=== PATIENT | male | born 1955 | race Caucasian/White ===

== ENCOUNTER 2018-10-28 20:02 | Inpatient (IN) | payer BC ==
[~2018-10-28] VITALS: Ht 182.9 cm; Wt 106.2 kg
[~2018-10-28 20:02] MED LIST: ADVIL200 MG PO; ASPIRIN E.C. 8181 MG PO; ATOXIMETIN-B1 CAP PO; HYZAAR 12.5 MG-1 TAB PO; LIPITOR80 MG PO; LISINOPRIL20 MG PO; ROBAXIN 50500 MG/TAB PO
[2018-10-28 21:17] LABS: COLLECTION METHOD CLEAN CATCH
[2018-10-28 21:26] LABS: BASO % 0.2 % (0.0-2.0); EOS # 0.2 (0.0-0.7); EOS % 1.1 % (0-4.0); GRAN # 10.2 (1.4-6.5); HEMATOCRIT 44.7 % (42.0-52.0); HEMOGLOBIN 15.7 g/dl (13.5-18.0); LYMPH # 2.4 (1.2-3.4); LYMPH % 17.5 % (20.0-51.0); MEAN CELL VOLUME 87 fl (80.0-100.0); MEAN CORPUSCULAR HEMOGLOBIN 31 pg (27.0-31.0); MEAN CORPUSCULAR HGB CONC 35 g/dl (33.0-37.0); MEAN PLATELET VOLUME 9.9 fl (7.4-10.4); MONO # 0.9 (0.1-0.6); MONO % 6.8 % (1.7-9.3); PLATELET COUNT 250 K/mm3 (130-400); RED BLOOD COUNT 5.14 M/mm3 (4.20-5.60); REDCELL DISTRIBUTION WIDTH-CV 11.9 % (11.5-14.5)
[2018-10-28 21:35] LABS: PH 6 (5-8); SQUAMOUS EPITHELIAL None Seen /hpf; URINE APPEARANCE Clear; URINE BACTERIA None Seen /hpf; URINE BILIRUBIN Negative (NEGATIVE); URINE BLOOD Negative (NEGATIVE); URINE COLOR Straw; URINE GLUCOSE 3+ (NEGATIVE); URINE KETONE Trace (NEGATIVE); URINE LEUKOCYTE ESTERASE Negative (NEGATIVE); URINE NITRATE Negative (NEGATIVE); URINE PROTEIN(semi-quant) Negative (NEGATIVE); URINE RBC 0-2 /hpf; URINE UROBILINOGEN Negative (NEGATIVE)
[2018-10-28 21:50] LABS: ALBUMIN 4.6 gm/dL (3.5-5.0); BILIRUBIN,TOTAL 0.9 mg/dL (0.0-1.0); C-REACTIVE PROTEIN 2.9 mg/dL (0.0-0.9); CALCIUM 9.9 mg/dL (8.4-10.2); CREATININE, serum 0.86 (0.66-1.25); POTASSIUM 3.8 mmol/L (3.4-5.0); TOTAL PROTEIN 7.8 gm/dL (6.4-8.2)
[2018-10-28] MEDS ORDERED: GLUCOPHAGE1000 MG PO (23:25)
[2018-10-29] VITALS (10 sets, daily range): BP systolic 13–155; BP diastolic 66–84; PULSE 64–76; TEMP 98–99.2
[2018-10-29] MEDS ORDERED: ALEVE 220MG220 MG PO (00:22)
[2018-10-29] MEDS ORDERED: HYZAAR 50-12.1 UDTAB PO (00:23)
--- NOTE | 2018-10-29 05:40 | NUR ---
Patient report given to NELSON Garcia. Patient resting comfortably at this time.
--- NOTE | 2018-10-29 07:00 | NUR ---
PT ASLEEP UPON TAKING OVER PT NURSE THIS MORNING.
--- NOTE | 2018-10-29 08:00 | NUR ---
PT VOICED HE WAS HAVING SOME PAIN AND NAUSEA AT THIS TIME AND WAS REQUESTING SOME MEDICINE. ZOFRAN AND MORPHINE WAS GIVEN.
[2018-10-29 08:08] LABS: CHOLESTEROL RISK RATIO 3.5; MAGNESIUM 1.8 mg/dL (1.6-2.3)
--- NOTE | 2018-10-29 09:00 | NUR ---
PT STATED HE WAS FEELING BETTER NO NOTED NAUSEA, SLIGHT PAIN AT THIS TIME BUT DENIED NEED FOR ANYTHING.
--- NOTE | 2018-10-29 11:01 | NUR ---
Visited and listened with the patient.
--- NOTE | 2018-10-29 12:07 | NUR ---
Plan: To return home with Adolfo Michelle Keny . Assessment: Met with patient about DC patient reports that they reside locally. Patient reports PCP is Dr. Alvarez, and obtains RX from [facility] [place]. Patient denies having any DME and no DPOA and not interested in filling one out. Family will transport home. ACtion: No additional needs identified.
--- NOTE | 2018-10-29 13:00 | NUR ---
PT HAS FAMILY INTO VISIT AT THIS TIME. PT ASKED THIS NURSE ABOUT ADVANCING DIET, WILL ASK PROVIDER, PT STATED THAT HE WAS TOLD EALIER HE COULD ADVANCE BY PROVIDER WHEN SHE WAS INTO SEE HIM. PT STATED THAT HE THINKS HES OVER THE HUMP FOR THE PAIN AND NAUSEA.
--- NOTE | 2018-10-29 15:00 | NUR ---
PT WAS ABLE TO ADVANCE TO FULL LIQUID DIET, PT STATED HE WAS ABLE TO TOLERATE SOME FOOD BUT DIDNT EAT A WHOLE LOT. PT HAD C/O HEADACHE FROM NOT EATING PRIOR TO RECIEVING MEAL, AFTERWARD STATED THAT IT WAS GETTING BETTER. PT DENIED NEED FOR PAIN MEDS OR ANTI-NAUSEA MEDS.
--- NOTE | 2018-10-29 19:00 | NUR ---
PT FAMILY HAS LEFT EXCEPT FOR SIGNICANT OTHER SITTING ON BENCH BY WINDOW. PT LAYING IN BED ASLEEP. SIGNIFICANT OTHER STATED SHE WAS GOING TO BE LEAVING SOON SO HE COULD SLEEP THAT HE HAD A BUSY DAY WITH ALL THE FAMILY THERE. THIS NURSE DIDNT GIVE 1700 MULTIVITAMIN, TALKED TO BUILDING ARCHITECTURAL DESIGNER NURSE SHE STATED SHE WOULD GIVE IT WITH OTHER HS MEDS DUE TO HIM SLEEPING.
--- NOTE | 2018-10-29 21:50 | NUR ---
Patient assessed at this time. Alert and oriented x 4, and able to make needs known. Patient reported level [address] Damon, and new order received for APAP 650 mg po Q6H PRN for pain. Given as requested for headache. Peripheral IV to left AC. NS running at 150 ml/hr per orders. Denies having SOB and dyspnea. LS CTA. Respirations even and unlabored. HRR. Cap refill < 3 sec. Non-tenting skin turgor. BSAx4. States he has been passing gas, no BM so far. 1+ edema BLE. Denies having any other questions, needs, or concerns at this time. Resting in bed watching TV at this time. Call light is within reach.
[2018-10-30] VITALS (11 sets, daily range): BP systolic 114–148; BP diastolic 46–82; PULSE 68–96; TEMP 97.5–99.9
--- NOTE | 2018-10-30 05:56 | NUR ---
Patient received PRN Zofran at approximatley 0200 for nausea. Medication was effective. PRN APAP last night was effective with relieving headache. No further complaints of pain or discomfort. NS continues to run at 150 ml/hr to peripheral IV to left AC. Voices no questions, needs, or concerns at this time. Call light is within reach.
[2018-10-30 06:16] LABS: BASO % 0.1 % (0.0-2.0); EOS # 0.2 (0.0-0.7); EOS % 1.1 % (0-4.0); GRAN % 77.1 % (42.2-75.2); HEMATOCRIT 39.2 % (42.0-52.0); LYMPH # 1.6 (1.2-3.4); LYMPH % 11.4 % (20.0-51.0); MEAN CELL VOLUME 89 fl (80.0-100.0); MEAN CORPUSCULAR HEMOGLOBIN 31 pg (27.0-31.0); MEAN CORPUSCULAR HGB CONC 34 g/dl (33.0-37.0); MONO # 1.4 (0.1-0.6); MONO % 9.9 % (1.7-9.3); PLATELET COUNT 212 K/mm3 (130-400); RED BLOOD COUNT 4.42 M/mm3 (4.20-5.60)
[2018-10-30 06:21] LABS: HEMOGLOBIN 13.5 g/dl (13.5-18.0)
[2018-10-30 06:31] LABS: ALBUMIN 3.8 gm/dL (3.5-5.0); BILIRUBIN,TOTAL 0.9 mg/dL (0.0-1.0); CALCIUM 8.5 mg/dL (8.4-10.2); CREATININE, serum 0.84 (0.66-1.25); MAGNESIUM 1.8 mg/dL (1.6-2.3); PHOSPHOROUS 3.3 mg/dL (2.5-4.5); TOTAL PROTEIN 6.6 gm/dL (6.4-8.2)
--- NOTE | 2018-10-30 18:58 | NUR ---
Report received from Bruna DAMON.
--- NOTE | 2018-10-30 19:53 | NUR ---
PT HAS SOME SLIGHT NAUSEA THIS AM PROVIDED SOME ZOFRAN. UNEVENTFUL DAY. PT HAD C/O ABD PRESSURE, BLOATING AND INABILLITY TO PASS GAS. THIS NURSE CALLED AND RECIEVED ORDER FOR COLACE AND MIRALAX, PT DRINKING ON SOME DIET SPRITE WELL TO TRY TO INDUCE BURPING. NO OTHER ISSUESN NOTED.
--- NOTE | 2018-10-30 20:00 | NUR ---
Pt resting in bed. No distress noted. Pt reports abdominal cramping that he attributes to not having a BM, but denies that it is painful. Abdomen is firm, distended. BS+. Respirations even and unlabored. Lungs clear. Pt is on detox protocol, but is not presenting symptoms at this time. Alert and oriented x4. IVF infusing to L AC IV site. Pt denies needs. Will continue to monitor.
[2018-10-31 01:52] VITALS: BP 125/59; PULSE 70; TEMP 98.1
[2018-10-31 04:09] VITALS: BP 126/70; PULSE 76; TEMP 98.6
--- NOTE | 2018-10-31 05:50 | NUR ---
Pt has slept periodically throughout the night with minor complaints of abdominal cramping/gas pains. He reports +flatus but no BM yet. Pt did not score on the CIWA scale. VSS.
[2018-10-31 06:02] VITALS: BP 140/78; PULSE 67; TEMP 98.5
[2018-10-31 06:09] LABS: BASO % 0.1 % (0.0-2.0); EOS # 0.2 (0.0-0.7); EOS % 1.5 % (0-4.0); GRAN # 11.3 (1.4-6.5); GRAN % 76.1 % (42.2-75.2); LYMPH # 1.8 (1.2-3.4); MEAN CELL VOLUME 88 fl (80.0-100.0); MEAN CORPUSCULAR HEMOGLOBIN 30 pg (27.0-31.0); MEAN CORPUSCULAR HGB CONC 34 g/dl (33.0-37.0); MEAN PLATELET VOLUME 10.4 fl (7.4-10.4); MONO # 1.5 (0.1-0.6); MONO % 9.9 % (1.7-9.3); PLATELET COUNT 193 K/mm3 (130-400); RED BLOOD COUNT 4.31 M/mm3 (4.20-5.60); REDCELL DISTRIBUTION WIDTH-CV 11.9 % (11.5-14.5)
[2018-10-31 06:15] LABS: CALCIUM 8.6 mg/dL (8.4-10.2); CREATININE, serum 0.78 (0.66-1.25); POTASSIUM 3.7 mmol/L (3.4-5.0)
[2018-10-31 07:53] VITALS: BP 135/65; PULSE 63; TEMP 98.7
--- NOTE | 2018-10-31 08:50 | NUR ---
PT IS AWAKE, OX4, DENIES ANY ISSUES THIS AM. STATES HE SLEPT WELL OTHER THAN BEING WOKE UP EVERY TWO HOURS THROUGH THE NIGHT. PT STATES HE IS HAVING ABDOMINAL CRAMPING AT 3/10 ON PAIN SCALE D/T HIS BOWELS NOT MOVING X3 DAYS. DENIES NAUSEA AT THIS TIME. ASSESSMENT COMPLETED AND VS OBTAINED. PT DENIES FURTHER NEEDS. CALL LIGHT WITHIN REACH.
[2018-10-31 10:00] VITALS: BP 126/53; PULSE 66; TEMP 99
[2018-10-31] MEDS ORDERED: MIRALAX238G PO (10:45)
--- NOTE | 2018-10-31 11:21 | NUR ---
Initial visit attempt; Patient indisposed, his Michelle was receptive to Spiritual Care and Natural Sciences Professor offering God's blessings both to her and Monico.
--- NOTE | 2018-10-31 11:35 | NUR ---
DC INSTRUCTIONS, MEDICATIONS REVIEWED WITH PT, VERBALIZES UNDERSTANDING; COPIES PROVIDED TO PT. IVF STOPPED AND SL REMOVED, CATH TIP INTACT. COTTON DRESSING AND PRESSURE APPLIED TO SITE. PT INSTRUCTED TO CALL WHEN READY FOR DC.
--- NOTE | 2018-10-31 11:52 | NUR ---
PT TAKEN BY WC THROUGH FRONT DOORS TO POV ACCOMPANIED BY .
== END 2018-10-31 11:53 | disposition home or self-care (01) | DRG 439 ==
LOC: COL.ER 20:02 → MEDICAL 23:01
PROVIDERS: Emergency Medicine; Family Medicine; Physician Assistant; ADMIT Internal Medicine
DX: K85.20 Alcohol induced acute pancreatitis without necrosis or infection (principal); K86.2 Cyst of pancreas; I10 Essential (primary) hypertension; E78.5 Hyperlipidemia, unspecified; E11.65 Type 2 diabetes mellitus with hyperglycemia; D72.829 Elevated white blood cell count, unspecified; Z87.891 Personal history of nicotine dependence; Z79.82 Long term (current) use of aspirin; Z79.84 Long term (current) use of oral hypoglycemic drugs
CPT/HCPCS: 99222-AI; 99239; J1650; J1815; J2270; J2405; J7030; Q9967